=== PATIENT | female | born 1945 | race Caucasian/White ===

== ENCOUNTER 2023-05-11 14:43 | Observation (INO) | payer MEDICARE, OTHER ==
[~2023-05-11] VITALS: Ht 157.5 cm; Wt 53.2 kg
[2023-05-11] VITALS (16 sets, daily range): BP systolic 104–130; BP diastolic 49–72
[2023-05-11 15:28] LABS: BASO% 0.2 % (0-3); EOS% 1.8 % (0-8); HEMATOCRIT 35.9 % (37.0-47.0); HEMOGLOBIN 11.6 g/dl (12.0-16.0); IMMATURE GRANULOCYTES 1.6 % (0.0-5.0); MEAN CELL VOLUME 101.4 fL CALC (80.0-100.0); MEAN CORPUSCULAR HGB 32.8 pG CALC (26.0-32.0); MEAN CORPUSCULAR HGB CONC 32.3 g/dL CAL (32.0-36.0); MONO% 6.7 % (2-13); NEUT# 10.02 thou/uL (2.00-7.15); NEUT% 78.7 % (42-76); RED BLOOD COUNT 3.54 mill/uL (4.20-5.60); RED CELL DISTRI WIDTH 12.1 % (11.5-15.5)
[2023-05-11 16:07] LABS: ALBUMIN 3.6 g/dL (3.2-5.0); ALKALINE PHOSPHATASE 90 u/l (38-126); ANION GAP 15 (6-22 (CALC)); BILIRUBIN, TOTAL 0.4 mg/dL (0.02-1.3); BUN 18 mg/dL (8-23); BUN/CREATININE RATIO 25 (12-20 (CALC)); CARBON DIOXIDE 28 mmol/l (22-30); CHLORIDE 102 mmol/l (95-108); CREATININE 0.7 mg/dL (0.5-1.0); GFR FOR AFR.AMER. > 60 ML/MIN (>=60 (CALC)); GFR OTHER RACES > 60 ML/MIN (>=60 (CALC)); POTASSIUM 3.7 mmol/l (3.5-5.1); SGOT/AST 41 u/l (9-36); SODIUM 142 mmol/l (137-146); TOTAL PROTEIN 6.3 g/dL (6.3-8.2)
[2023-05-11 17:33] LABS: URINE BLOOD DIPSTICK Negative (NEGATIVE); URINE GLUCOSE - DIPSTICK Negative (NEGATIVE); URINE KETONE 15 mg/dL (NEGATIVE); URINE LEUK ESTERASE Trace (NEGATIVE); URINE NITRITE - DIPSTICK Negative (Negative); URINE PROTEIN - DIPSTICK 30 mg/dL (NEG-TRACE); URINE SPECIFIC GRAVITY 1.015
[2023-05-11 17:37] LABS: URINE COLOR Yellow; URINE SQUAMOUS EPITHELIAL CELL FEW EPI/hpf (0-FEW)
[2023-05-11] MEDS ORDERED: FISH OIL1000 M1 PO (18:13)
[2023-05-11] MEDS ORDERED: LISINOPRIL20 M1 PO (18:14)
[2023-05-11] MEDS ORDERED: ZINC50 MG PO (18:14)
[2023-05-11] MEDS ORDERED: POT CHLORIDE10 ME5 PO (18:17)
[2023-05-11] MEDS ORDERED: VALTREX500 MG PO (18:17)
[2023-05-11] MEDS ORDERED: WELLBUTRIN XL300 MG PO (18:19)
[2023-05-11] MEDS ORDERED: SIMVASTATIN40 MG PO (18:19)
[2023-05-11] MEDS ORDERED: OS-CAL 500500 M1 PO (18:19)
[2023-05-11] MEDS ORDERED: MULTI VIT PO (18:20)
[2023-05-12 00:15] VITALS: BP 138/51
[2023-05-12 04:18] VITALS: BP 147/75
[2023-05-12 06:02] LABS: BASO% 0.1 % (0-3); HEMATOCRIT 33.3 % (37.0-47.0); HEMOGLOBIN 10.8 g/dl (12.0-16.0); IMMATURE GRANULOCYTES 2.3 % (0.0-5.0); LYMPH% 5.6 % (15-41); MEAN CELL VOLUME 102.5 fL CALC (80.0-100.0); MEAN CORPUSCULAR HGB 33.2 pG CALC (26.0-32.0); MEAN CORPUSCULAR HGB CONC 32.4 g/dL CAL (32.0-36.0); MONO% 1.7 % (2-13); NEUT# 12.48 thou/uL (2.00-7.15); NEUT% 90.3 % (42-76); RED BLOOD COUNT 3.25 mill/uL (4.20-5.60); RED CELL DISTRI WIDTH 12.2 % (11.5-15.5)
[2023-05-12 06:26] LABS: ALBUMIN 3.1 g/dL (3.2-5.0); ALKALINE PHOSPHATASE 89 u/l (38-126); ANION GAP 13 (6-22 (CALC)); BUN 14 mg/dL (8-23); BUN/CREATININE RATIO 25 (12-20 (CALC)); CARBON DIOXIDE 25 mmol/l (22-30); CHLORIDE 109 mmol/l (95-108); CREATININE 0.6 mg/dL (0.5-1.0); GFR FOR AFR.AMER. > 60 ML/MIN (>=60 (CALC)); GFR OTHER RACES > 60 ML/MIN (>=60 (CALC)); MAGNESIUM 2.1 mg/dL (1.6-2.3); POTASSIUM 4.1 mmol/l (3.5-5.1); SGOT/AST 39 u/l (9-36); SODIUM 142 mmol/l (137-146); TOTAL PROTEIN 5.7 g/dL (6.3-8.2)
[2023-05-12 06:32] LABS: BILIRUBIN, TOTAL 0.2 mg/dL (0.02-1.3)
[2023-05-12 07:00] VITALS: BP 126/48
[2023-05-12 11:45] VITALS: BP 132/66
[2023-05-12 15:53] VITALS: BP 141/70
[2023-05-12 19:34] VITALS: BP 153/68
[2023-05-13 00:40] VITALS: BP 159/71
[2023-05-13 04:34] VITALS: BP 149/81
[2023-05-13 05:58] LABS: BASO% 0.1 % (0-3); HEMATOCRIT 32.7 % (37.0-47.0); HEMOGLOBIN 10.5 g/dl (12.0-16.0); IMMATURE GRANULOCYTES 4.2 % (0.0-5.0); LYMPH% 6.3 % (15-41); MEAN CELL VOLUME 101.6 fL CALC (80.0-100.0); MEAN CORPUSCULAR HGB 32.6 pG CALC (26.0-32.0); MEAN CORPUSCULAR HGB CONC 32.1 g/dL CAL (32.0-36.0); MONO% 2.5 % (2-13); NEUT# 16.87 thou/uL (2.00-7.15); NEUT% 86.9 % (42-76); RED BLOOD COUNT 3.22 mill/uL (4.20-5.60); RED CELL DISTRI WIDTH 12.2 % (11.5-15.5)
[2023-05-13 06:09] LABS: ALBUMIN 3.2 g/dL (3.2-5.0); ALKALINE PHOSPHATASE 81 u/l (38-126); ANION GAP 14 (6-22 (CALC)); BILIRUBIN, TOTAL 0.2 mg/dL (0.02-1.3); BUN 9 mg/dL (8-23); BUN/CREATININE RATIO 17 (12-20 (CALC)); CARBON DIOXIDE 26 mmol/l (22-30); CHLORIDE 108 mmol/l (95-108); CREATININE 0.6 mg/dL (0.5-1.0); GFR FOR AFR.AMER. > 60 ML/MIN (>=60 (CALC)); GFR OTHER RACES > 60 ML/MIN (>=60 (CALC)); MAGNESIUM 2.1 mg/dL (1.6-2.3); POTASSIUM 3.8 mmol/l (3.5-5.1); SGOT/AST 41 u/l (9-36); SODIUM 144 mmol/l (137-146); TOTAL PROTEIN 5.8 g/dL (6.3-8.2)
[2023-05-13 06:31] VITALS: BP 158/66
[2023-05-13 09:28] VITALS: BP 111/54
[2023-05-13 09:33] VITALS: BP 117/45
[2023-05-13] MEDS ORDERED: OMNICEF300 MG PO (09:53)
[2023-05-13] MEDS ORDERED: AZITHROMYCIN500 MG PO (09:54)
[2023-05-13] MEDS ORDERED: FLORASTOR250 M1 PO (09:57)
[2023-05-13 11:39] VITALS: BP 166/75
== END 2023-05-13 14:03 | disposition home or self-care (01) ==
LOC: ED 14:43 → ED-I 16:24 → ED 16:24 → ED-I 17:40 → ED 18:08 → MS2 18:09
PROVIDERS: Family Medicine; Nurse Practitioner Family; ADMIT Student in an Organized Health Care Education/Training Program; ATTEND Student in an Organized Health Care Education/Training Program
DX: J18.9 Pneumonia, unspecified organism (principal); K59.00 Constipation, unspecified; I10 Essential (primary) hypertension; F32.A Depression, unspecified; E78.00 Pure hypercholesterolemia, unspecified; Z20.822 Contact with and (suspected) exposure to COVID-19
CPT/HCPCS: J1650